=== PATIENT | male | born 1960 | race Caucasian/White ===

== ENCOUNTER 2021-08-07 16:00 | Emergency (ER) | payer OTHER ==
[~2021-08-07 16:00] MED LIST: BACTRIM DS TAB1 EACH PO
[2021-08-07 16:40] LABS: HEMOGLOBIN 15.4 gm/dl (14.0-17.5); RED BLOOD COUNT 5.12 M/UL (4.20-5.50); WHITE BLOOD COUNT 7.6 K/UL (4.5-11.0)
[2021-08-07] MEDS ORDERED: HYDROCODON-ACE1 EAC4 PO (17:52)
[2021-08-07] MEDS ORDERED: OMNICEF 300 MG300 MG PO (17:56)
== END 2021-08-07 18:05 | disposition home or self-care (01) ==
LOC: ER1 16:00
PROVIDERS: Emergency Medicine
DX: N13.2 Hydronephrosis with renal and ureteral calculous obstruction (principal); D17.71 Benign lipomatous neoplasm of kidney; I10 Essential (primary) hypertension; Z87.442 Personal history of urinary calculi
CPT/HCPCS: 80053; 81001; 85025; 87086; 96374; 96375; 99284; J1170; J2270; J2405